=== PATIENT | female | born 1965 | race Caucasian/White ===

== ENCOUNTER → 2020-07-31 | Outpatient (CLI) | payer OTHER | LOC: EMI 14:58 | DX: M54.9 Dorsalgia, unspecified (principal); M51.36 Other intervertebral disc degeneration, lumbar region; M51.37 Other intervertebral disc degeneration, lumbosacral region | CPT/HCPCS: 72148 ==

== ENCOUNTER → 2020-08-28 | Outpatient (CLI) | payer OTHER | LOC: KOH-I 11:38 | DX: S86.912A Strain of unspecified muscle(s) and tendon(s) at lower leg level, left leg, initial encounter (principal); M17.12 Unilateral primary osteoarthritis, left knee | CPT/HCPCS: 73564 ==

== ENCOUNTER 2021-03-06 16:31 | Emergency (ER) | payer OTHER | END 2021-03-06 17:17 | disposition home or self-care (01) | LOC: ER1 16:31 | DX: S01.81XA Laceration without foreign body of other part of head, initial encounter (principal); Z23 Encounter for immunization; W26.8XXA Contact with other sharp object(s), not elsewhere classified, initial encounter | CPT/HCPCS: 12011; 90471; 90715; 99282 ==

== ENCOUNTER → 2021-07-23 | Outpatient (CLI) | payer OTHER ==
[~2021-07-23] VITALS: Ht 152.4 cm; Wt 74.4 kg
== END ==
LOC: EROP 11:18
DX: U07.1 COVID-19 (principal); Z23 Encounter for immunization
CPT/HCPCS: M0247; Q0247